=== PATIENT | female | born 1995 | race Caucasian/White ===

== ENCOUNTER 2016-04-22 16:02 | Emergency (ER) | payer OTHER ==
[2016-04-22] MEDS ORDERED: GI COCKTAIL 50ML BTL(HYOSCYAMINE/MAALOX/LIDOCAINE VISCOUS)(1:3:1) As Ordered ONE (16:50)
--- NOTE | 2016-04-22 16:57 | EDDOCDS ---
Physician Documentation [facility] Name: Diane Edmond Age: 20 yrs Sex: Female : 1995 Arrival Date: 04/22/2016 Time: 16:02 Bed Triage 1 Private MD: JOSI Jesus Disposition: 04/22/16 16:50 Discharged to Home/Self Care. Impression: Gastro-esophageal reflux disease. - Condition is Stable. - Discharge Instructions: Gastroesophageal Reflux Disease, Adult. - Prescriptions for Zantac 300 mg Oral Tablet - take 1 tablet by ORAL route At bedtime; 30 tablet. - Medication Reconciliation, Local Pharmacy Hours form. - Follow up: Emergency Department; When: As needed. Follow up: JOSI Jesus; When: Tomorrow; Reason: Wound/Symptom Recheck, Recheck today's complaints, Worsening of conditions, Continuance of care. - Problem is new. - Symptoms have improved. Historical: - Allergies: no known allergies; - Home Meds: 1. Oral daily - PMHx: none; - PSHx: none; - Social history: Smoking status: Patient states was never smoker of tobacco. No barriers to communication noted, The patient speaks fluent German, Speaks appropriately for age. - Family history: Not pertinent. - : The pt / caregiver states he / she is not on anticoagulants. Home medication list is obtained from the patient. - Exposure Risk Screening:: None identified. 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 6 in. (167.64 cm) (R); Pain 8/10; 16:05 Body Mass Index 38.74 (108.86 kg, 167.64 cm) gr2 MDM: 16:49 GI Cocktail - (Alum-Mag Hydroxide-Simeth 30 ml, Lidocaine 10 ml, Hyoscyamine 10 ml) PO cc10 once; Pre-mixed 50mL unit dose ordered. Administered Medications: 16:54 Drug: GI Cocktail - (Alum-Mag Hydroxide-Simeth Suspension 225 mg-200 mg-25 mg/5 mL 30 ck1 ml, Lidocaine Liquid 2 % 10 ml, Hyoscyamine Liquid 10 ml) Route: PO; Signatures: Chiara Garcia,RN RN ck1 Maddison LanderosRN RN ead Ace Joshi, MALVIN PAEmory cc10 MTDD
--- NOTE | 2016-04-22 16:57 | EDDOCDS ---
Nurse's Notes [facility] Name: Diane Edmond Age: 20 yrs Sex: Female : 1995 Arrival Date: 04/22/2016 Time: 16:02 Bed Triage 1 Private MD: JOSI Jesus Diagnosis: Gastro-esophageal reflux disease Presentation: 04/22 16:07 Presenting complaint: Patient states: Pt c/o pain underneath ribs, onset 1 hour ago. Pt ead also states she is 10 weeks, 6 days . Denies n/v. Risk factors: the patient reports no vaginal bleeding. Adult Sepsis Screening: The patient does not have new or worsening altered mentation. Patient's respiratory rate is less than 22. Systolic blood pressure is greater than 100. Patient has a qSOFA score of 0- Negative Sepsis Screen. Suicide/Homicide risk assessment- the patient denies having any suicidal and/or homicidal ideations and does not present with any other emotional, behavioral or mental health complaints. Status: The patient is a dependent. Transition of care: patient was not received from another setting of care. 16:07 Acuity: FRANTZ Level 3 ead 16:07 Method Of Arrival: Walkin/Carried/Asstd ead Triage Assessment: 16:08 General: Appears in no apparent distress, comfortable, Behavior is appropriate for age, ead cooperative. Pain: Location: diaphragm Pain currently is 4 out of 10 on a pain scale. At worst was 6 out of 10 on a pain scale. HIV screening NA for this visit Offered previously. GI: Reports upper abd pain, Denies nausea, vomiting. GI: Denies cramping. : Denies vaginal bleeding. Derm: Skin is pink, warm & dry. 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 Oral daily - PMHx: none; - PSHx: none; - Social history: Smoking status: Patient states was never smoker of tobacco. No barriers to communication noted, The patient speaks fluent Vincentian, Speaks appropriately for age. - Family history: Not pertinent. - : The pt / caregiver states he / she is not on anticoagulants. Home medication list is obtained from the patient. - Exposure Risk Screening:: None identified. Screenin:55 Screening information is obtained from the patient. Fall risk: No risks identified. ck1 Assistance ADL's: requires no assistance with activities of daily living. Abuse/DV Screen: The patient / caregiver reports he/she is: not in a situation that causes fear, pain or injury. Nutritional screening: No deficits noted. Advance Directives: Currently, there is no health care proxy. home support is adequate. Assessment: 16:55 General: Appears in no apparent distress, comfortable, Behavior is appropriate for age, ck1 cooperative. Pain: Location: epigastric area Pain currently is 2 out of 10 on a pain scale. GI: Abdomen is obese, Bowel sounds present X 4 quads. Abd is soft and non tender X 4 quads. Denies nausea, vomiting. : Denies cramping vaginal bleeding. Derm: Skin is pink, warm & dry. Vital Signs: 16:05 BP 126 / 71; Pulse 93; Resp 18 S; Temp 97.8(O); Pulse Ox 100% on R/A; Weight 108.86 kg gr2 (R); Height 5 ft. 6 in. (167.64 cm) (R); Pain 8/10; 16:05 Body Mass Index 38.74 (108.86 kg, 167.64 cm) gr2 Vitals: 16:05 Log In Time: April 22, 2016 at 16:05. gr2 ED Course: 16:04 Patient visited by Viral Erickson. gr2 16:04 Edin [facility] is Private Physician. gr2 16:04 Patient moved to Waiting gr2 16:06 Patient visited by Viral Erickson. gr2 16:06 Patient moved to Pre RCE gr2 16:08 Triage Initiated ead 16:37 Patient moved to Triage 1 ck1 16:39 Ace Joshi PA-C is PHCP. cc10 16:39 Laurel Franz MD is Attending Physician. cc10 16:47 Patient visited by Chiara Garcia RN. ck1 16:50 JOSI Jesus is Referral Physician. cc10 16:51 Patient visited by Ace Joshi PA-C. cc10 16:51 Patient visited by Ace Joshi PA-C. cc10 16:55 The patient / caregiver is instructed regarding the plan of care and ED course. ck1 16:55 No IV's were initiated during this patient's visit. No procedures done that require ck1 assistance. Administered Medications: 16:54 Drug: GI Cocktail - (Alum-Mag Hydroxide-Simeth Suspension 225 mg-200 mg-25 mg/5 mL 30 ck1 ml, Lidocaine Liquid 2 % 10 ml, Hyoscyamine Liquid 10 ml) Route: PO; Order Results: There are currently no results for this order. Outcome: 16:50 Discharge ordered by Provider. cc10 16:55 Discharge Assessment: Patient awake, alert and oriented x 3. No cognitive and/or ck1 functional deficits noted. Patient verbalized understanding of disposition instructions. patient administered narcotics - no. The following High Risk Discharge criteria are identified: None. Discharged to home ambulatory. Condition: stable. Discharge instructions given to patient, Instructed on discharge instructions, follow up and referral plans. medication usage, Demonstrated understanding of instructions, medications, Pt was receptive of discharge instructions/ teaching. Prescriptions given X 1. No special radiology studies were completed. Property :Personal belongings accompany Pt. 16:56 Patient left the ED. ck1 Signatures: Chiara Garcia,RN RN ck1 Viral Erickson gr2 Maddison Landeros,RN RN eaAce Huff PA-C PAEm[facility] cc10 MTDD
--- NOTE | 2016-04-24 17:57 | EDDOCDS ---
Nurse's Notes [facility] Name: Diane Edmond Age: 20 yrs Sex: Female : 1995 Arrival Date: 04/22/2016 Time: 16:02 Bed Triage 1 Private MD: JOSI Jesus Diagnosis: Gastro-esophageal reflux disease Presentation: 04/22 16:07 Presenting complaint: Patient states: Pt c/o pain underneath ribs, onset 1 hour ago. Pt ead also states she is 10 weeks, 6 days . Denies n/v. Risk factors: the patient reports no vaginal bleeding. Adult Sepsis Screening: The patient does not have new or worsening altered mentation. Patient's respiratory rate is less than 22. Systolic blood pressure is greater than 100. Patient has a qSOFA score of 0- Negative Sepsis Screen. Suicide/Homicide risk assessment- the patient denies having any suicidal and/or homicidal ideations and does not present with any other emotional, behavioral or mental health complaints. Status: The patient is a dependent. Transition of care: patient was not received from another setting of care. 16:07 Acuity: FRANTZ Level 3 ead 16:07 Method Of Arrival: Walkin/Carried/Asstd ead Triage Assessment: 16:08 General: Appears in no apparent distress, comfortable, Behavior is appropriate for age, ead cooperative. Pain: Location: diaphragm Pain currently is 4 out of 10 on a pain scale. At worst was 6 out of 10 on a pain scale. HIV screening NA for this visit Offered previously. GI: Reports upper abd pain, Denies nausea, vomiting. GI: Denies cramping. : Denies vaginal bleeding. Derm: Skin is pink, warm & dry. 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 Oral daily - PMHx: none; - PSHx: none; - Social history: Smoking status: Patient states was never smoker of tobacco. No barriers to communication noted, The patient speaks fluent Indian, Speaks appropriately for age. - Family history: Not pertinent. - : The pt / caregiver states he / she is not on anticoagulants. Home medication list is obtained from the patient. - Exposure Risk Screening:: None identified. Screenin:55 Screening information is obtained from the patient. Fall risk: No risks identified. ck1 Assistance ADL's: requires no assistance with activities of daily living. Abuse/DV Screen: The patient / caregiver reports he/she is: not in a situation that causes fear, pain or injury. Nutritional screening: No deficits noted. Advance Directives: Currently, there is no health care proxy. home support is adequate. Assessment: 16:55 General: Appears in no apparent distress, comfortable, Behavior is appropriate for age, ck1 cooperative. Pain: Location: epigastric area Pain currently is 2 out of 10 on a pain scale. GI: Abdomen is obese, Bowel sounds present X 4 quads. Abd is soft and non tender X 4 quads. Denies nausea, vomiting. : Denies cramping vaginal bleeding. Derm: Skin is pink, warm & dry. Vital Signs: 16:05 BP 126 / 71; Pulse 93; Resp 18 S; Temp 97.8(O); Pulse Ox 100% on R/A; Weight 108.86 kg gr2 (R); Height 5 ft. 6 in. (167.64 cm) (R); Pain 8/10; 16:05 Body Mass Index 38.74 (108.86 kg, 167.64 cm) gr2 Vitals: 16:05 Log In Time: April 22, 2016 at 16:05. gr2 ED Course: 16:04 Patient visited by Viral Erickson. gr2 16:[address] [facility] [place] [facility] is Private Physician. gr2 16:04 Patient moved to Waiting gr2 16:06 Patient visited by Viral Erickson. gr2 16:06 Patient moved to Pre RCE gr2 16:08 Triage Initiated ead 16:37 Patient moved to Triage 1 ck1 16:39 Aec Joshi PA-C is PHCP. cc10 16:39 Laurel Franz MD is Attending Physician. cc10 16:47 Patient visited by Chiara Garcia RN. ck1 16:50 JOSI Jesus is Referral Physician. cc10 16:51 Patient visited by Ace Joshi PA-C. cc10 16:51 Patient visited by Ace Joshi PA-C. cc10 16:55 The patient / caregiver is instructed regarding the plan of care and ED course. ck1 16:55 No IV's were initiated during this patient's visit. No procedures done that require ck1 assistance. 16:57 Patient visited by Ace Joshi PA-C. cc10 16:59 [facility] Payment Agreement was scanned into [employer] and attached to record. clif 04/23 09:42 T-Sheet-- Draft Copy was scanned into [employer] and attached to record. gb Administered Medications: 04/22 16:54 Drug: GI Cocktail - (Alum-Mag Hydroxide-Simeth Suspension 225 mg-200 mg-25 mg/5 mL 30 ck1 ml, Lidocaine Liquid 2 % 10 ml, Hyoscyamine Liquid 10 ml) Route: PO; Order Results: There are currently no results for this order. Outcome: 16:50 Discharge ordered by Provider. cc10 16:55 Discharge Assessment: Patient awake, alert and oriented x 3. No cognitive and/or ck1 functional deficits noted. Patient verbalized understanding of disposition instructions. patient administered narcotics - no. The following High Risk Discharge criteria are identified: None. Discharged to home ambulatory. Condition: stable. Discharge instructions given to patient, Instructed on discharge instructions, follow up and referral plans. medication usage, Demonstrated understanding of instructions, medications, Pt was receptive of discharge instructions/ teaching. Prescriptions given X 1. No special radiology studies were completed. Property :Personal belongings accompany Pt. 16:56 Patient left the ED. ck1 Signatures: Sally Argueta, Reg Reg gb Chiara GarciaRN RN ck1 Viral Erickson gr2 Maddison Landeros,RN RN Ace Barksdale PA-C PA-C cc10 Doreen Hernandez [facility] Chart Complete [facility]
--- NOTE | 2016-04-24 17:57 | EDDOCDS ---
Physician Documentation [facility] Name: Diane Edmond Age: 20 yrs Sex: Female : 1995 Arrival Date: 04/22/2016 Time: 16:02 Bed Triage 1 Private MD: JOSI Jesus Disposition: 04/22/16 16:50 Discharged to Home/Self Care. Impression: Gastro-esophageal reflux disease. - Condition is Stable. - Discharge Instructions: Gastroesophageal Reflux Disease, Adult. - Prescriptions for Zantac 300 mg Oral Tablet - take 1 tablet by ORAL route At bedtime; 30 tablet. - Medication Reconciliation, Local Pharmacy Hours form. - Follow up: Emergency Department; When: As needed. Follow up: JOSI Jesus; When: Tomorrow; Reason: Wound/Symptom Recheck, Recheck today's complaints, Worsening of conditions, Continuance of care. - Problem is new. - Symptoms have improved. Historical: - Allergies: no known allergies; - Home Meds: 1. Oral daily - PMHx: none; - PSHx: none; - Social history: Smoking status: Patient states was never smoker of tobacco. No barriers to communication noted, The patient speaks fluent Jamaican, Speaks appropriately for age. - Family history: Not pertinent. - : The pt / caregiver states he / she is not on anticoagulants. Home medication list is obtained from the patient. - Exposure Risk Screening:: None identified. 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 6 in. (167.64 cm) (R); Pain 8/10; 16:05 Body Mass Index 38.74 (108.86 kg, 167.64 cm) gr2 MDM: 16:49 GI Cocktail - (Alum-Mag Hydroxide-Simeth 30 ml, Lidocaine 10 ml, Hyoscyamine 10 ml) PO cc10 once; Pre-mixed 50mL unit dose ordered. 16:59 [facility] Payment Agreement was scanned into [employer] and attached to record. [facility] 16:59 Financial registration complete. codi 04/23 09:42 T-Sheet-- Draft Copy was scanned into [employer] and attached to record. gb Administered Medications: 04/22 16:54 Drug: GI Cocktail - (Alum-Mag Hydroxide-Simeth Suspension 225 mg-200 mg-25 mg/5 mL 30 ck1 ml, Lidocaine Liquid 2 % 10 ml, Hyoscyamine Liquid 10 ml) Route: PO; Signatures: Sally Argueta, Reg Reg gb Yaquelin-Chiara OrtizRN RN ck1 Maddison Landeros RN RN ead Ace Joshi, PA-C PA-C cc10 Doreen Hernandez The chart was reviewed and I authenticate all verbal orders and agree with the evaluation and treatment provided.Attachments: 16:59 [facility] Payment Agreement gjb 04/23 09:42 T-Sheet-- Draft Copy gb Chart Complete MTDD
--- NOTE | 2016-04-24 17:57 | EDDOCDS ---
Physician Documentation [facility] Name: Diane Edmond Age: 20 yrs Sex: Female : 1995 Arrival Date: 04/22/2016 Time: 16:02 Bed Triage 1 Private MD: JOSI Jesus Disposition: 04/22/16 16:50 Discharged to Home/Self Care. Impression: Gastro-esophageal reflux disease. - Condition is Stable. - Discharge Instructions: Gastroesophageal Reflux Disease, Adult. - Prescriptions for Zantac 300 mg Oral Tablet - take 1 tablet by ORAL route At bedtime; 30 tablet. - Medication Reconciliation, Local Pharmacy Hours form. - Follow up: Emergency Department; When: As needed. Follow up: JOSI Jesus; When: Tomorrow; Reason: Wound/Symptom Recheck, Recheck today's complaints, Worsening of conditions, Continuance of care. - Problem is new. - Symptoms have improved. Historical: - Allergies: no known allergies; - Home Meds: 1. Oral daily - PMHx: none; - PSHx: none; - Social history: Smoking status: Patient states was never smoker of tobacco. No barriers to communication noted, The patient speaks fluent Japanese, Speaks appropriately for age. - Family history: Not pertinent. - : The pt / caregiver states he / she is not on anticoagulants. Home medication list is obtained from the patient. - Exposure Risk Screening:: None identified. 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 6 in. (167.64 cm) (R); Pain 8/10; 16:05 Body Mass Index 38.74 (108.86 kg, 167.64 cm) gr2 MDM: 16:49 GI Cocktail - (Alum-Mag Hydroxide-Simeth 30 ml, Lidocaine 10 ml, Hyoscyamine 10 ml) PO cc10 once; Pre-mixed 50mL unit dose ordered. 16:59 [facility] Payment Agreement was scanned into [employer] and attached to record. [facility] 16:59 Financial registration complete. codi 04/23 09:42 T-Sheet-- Draft Copy was scanned into [employer] and attached to record. gb Administered Medications: 04/22 16:54 Drug: GI Cocktail - (Alum-Mag Hydroxide-Simeth Suspension 225 mg-200 mg-25 mg/5 mL 30 ck1 ml, Lidocaine Liquid 2 % 10 ml, Hyoscyamine Liquid 10 ml) Route: PO; Signatures: Sally Argueta, Reg Reg gb Yaquelin-Chiara OrtizRN RN ck1 Maddison Landeros RN RN ead Ace Joshi, PA-C PA-C cc10 Doreen Hernandez The chart was reviewed and I authenticate all verbal orders and agree with the evaluation and treatment provided.Attachments: 16:59 [facility] Payment Agreement gjb 04/23 09:42 T-Sheet-- Draft Copy gb Chart Complete MTDD
== END 2016-04-22 16:56 | disposition home or self-care (01) ==
LOC: M ED 16:02
DX: O99.611 Diseases of the digestive system complicating pregnancy, first trimester (principal); K21.9 Gastro-esophageal reflux disease without esophagitis; Z3A.10 10 weeks gestation of pregnancy

== ENCOUNTER 2016-08-27 00:54 | Outpatient (CLI) | payer OTHER ==
[~2016-08-27] VITALS: Ht 167.6 cm; Wt 125.0 kg
[2016-08-27 01:10] VITALS: BP 127/58
[2016-08-27] MEDS ORDERED: PREN27TA3 PO (01:12)
[2016-08-27] MEDS ORDERED: ACET50TA PO (01:12)
[2016-08-27 02:31] LABS: MEAN CORPUSCULAR HEMOGLOBIN 30.2 pg (27.0-33.0); MEAN CORPUSCULAR HGB CONC 34.3 g/dl (32.0-36.5); MEAN CORPUSCULAR VOLUME 88.2 fl (80.0-96.0); WHITE BLOOD COUNT 11.9 K/mm3 (4.0-10.0)
[2016-08-27 03:00] LABS: ALBUMIN 2.6 GM/DL (3.2-5.2); ALBUMIN/GLOBULIN RATIO 0.72 (1.00-1.93); ALKALINE PHOSPHATASE 130 U/L (45-117); ALT/SGPT 37 U/L (12-78); AMYLASE 53 U/L (25-115); ANION GAP 9 MEQ/L (8-16); AST/SGOT 27 U/L (15-37); BILIRUBIN,TOTAL 0.3 MG/DL (0.2-1.0); BLOOD UREA NITROGEN 10 MG/DL (7-18); CALCIUM LEVEL 8.9 MG/DL (8.5-10.1); CARBON DIOXIDE LEVEL 26 MEQ/L (21-32); CHLORIDE LEVEL 107 MEQ/L (98-107); CREATININE FOR GFR 0.75 MG/DL (0.55-1.02); GLOMERULAR FILTRATION RATE > 60.0 (>60); GLUCOSE, FASTING 83 MG/DL (70-105); POTASSIUM SERUM 3.8 MEQ/L (3.5-5.1); SODIUM LEVEL 142 MEQ/L (136-145); TOTAL PROTEIN 6.2 GM/DL (6.4-8.2)
== END 2016-08-27 03:45 | disposition home or self-care (01) ==
LOC: M LDO 00:54
PROVIDERS: ATTEND Obstetrics & Gynecology
DX: O99.89 Other specified diseases and conditions complicating pregnancy, childbirth and the puerperium (principal); R10.13 Epigastric pain; K21.9 Gastro-esophageal reflux disease without esophagitis; Z3A.28 28 weeks gestation of pregnancy

== ENCOUNTER 2016-09-15 21:02 | Outpatient (CLI) | payer OTHER ==
[~2016-09-15] VITALS: Ht 167.6 cm; Wt 120.0 kg
[~2016-09-15 21:02] MED LIST: ACET50TA PO; PREN27TA3 PO
[2016-09-15 21:05] VITALS: BP 122/65
[2016-09-15 21:16] VITALS: BP 122/65
[2016-09-15 22:30] LABS: MEAN CORPUSCULAR HEMOGLOBIN 30.1 pg (27.0-33.0); MEAN CORPUSCULAR HGB CONC 33.5 g/dl (32.0-36.5); MEAN CORPUSCULAR VOLUME 89.7 fl (80.0-96.0); WHITE BLOOD COUNT 13.2 K/mm3 (4.0-10.0)
[2016-09-15 22:50] LABS: ALBUMIN 2.8 GM/DL (3.2-5.2); ALKALINE PHOSPHATASE 139 U/L (45-117); ALT/SGPT 38 U/L (12-78); AMYLASE 53 U/L (25-115); ANION GAP 7 MEQ/L (8-16); AST/SGOT 41 U/L (15-37); BILIRUBIN,TOTAL 0.5 MG/DL (0.2-1.0); BLOOD UREA NITROGEN 10 MG/DL (7-18); CARBON DIOXIDE LEVEL 25 MEQ/L (21-32); CHLORIDE LEVEL 108 MEQ/L (98-107); CREATININE FOR GFR 0.58 MG/DL (0.55-1.02); GLOMERULAR FILTRATION RATE > 60.0 (>60); GLUCOSE, FASTING 95 MG/DL (70-105); POTASSIUM SERUM 4.3 MEQ/L (3.5-5.1); SODIUM LEVEL 140 MEQ/L (136-145); TOTAL PROTEIN 6.8 GM/DL (6.4-8.2)
[2016-09-15 23:26] VITALS: BP 109/64
== END 2016-09-15 23:38 | disposition home or self-care (01) ==
LOC: M LDO 21:02
PROVIDERS: ATTEND Obstetrics & Gynecology
DX: O99.89 Other specified diseases and conditions complicating pregnancy, childbirth and the puerperium (principal); R10.30 Lower abdominal pain, unspecified; K21.9 Gastro-esophageal reflux disease without esophagitis; Z3A.31 31 weeks gestation of pregnancy

== ENCOUNTER 2016-11-14 15:11 | Outpatient (CLI) | payer OTHER ==
--- NOTE | 2016-11-15 06:51 | HPE ---
DATE OF ADMISSION: 11/14/2016 20-year-old, 2, para 0, abortio 1, last menstrual period (LMP) 02/08/2016, expected date of confinement (EDC) 11/14/2016 at 40 weeks of gestation who was complaining of contractions every 15 minutes and she said that she was bleeding vaginally. Her past history, in 2016 at 8 weeks, had a spontaneous miscarriage. Her risk factors are that she has a body mass index (BMI) of 43, Rh negative and frequent urinary tract and recurrent infections with E-coli susceptible to Macrobid. Labs are A negative. HIV negative. Hepatitis negative. 1-hour glucose 112. 28-week glucose 101. RPR negative. Rubella immune. Varicella nonimmune. GBS negative. CF declined. Pap shows ASCUS, HPV negative. Urine had shown E-coli and test of cure was negative. Gonorrhea and chlamydia are negative. On examination today, no distress. Symphysis fundus height is 40, vertex, occiput anterior (OA), 100% effaced, -3 station, very posterior, 1-2 cm. No vaginal bleeding or loss was noted. No discharge was noted. Urine is 1.015, pH 5, 2+ leukocyte esterase, trace protein, and foul-smelling with 3+ bacteria. Blood pressure is 121/73, respirations are 18, pulse is 112, and temperature is 98.6. The rest the examination is unremarkable. She is normocephalic, atraumatic. Neck full range of motion. Pupils equal and reactive to light. Mucous membranes are very dry with cracked lips because she had nothing to drink all day today. Pulses are symmetric. No evidence of deep vein thrombosis (DVT), pulmonary embolism (PE) or superficial phlebitis. Chest is clear bilaterally at bases. No wheezes or rhonchi. No costovertebral angle (CVA) tenderness. Symphysis fundus height is appropriate. Four quadrant bowel sounds are noted. Uterus nontender. No rashes, lesions or pruritus. No arthralgia, myalgia. No complaints of cough, wheeze, shortness of breath, or dyspnea on exertion. No chest pain. Not bleeding. Neurologic complete. No incontinency or frequency. No nausea, vomiting, diarrhea, or constipation. No diabetic issues. THREAD CHECKER: She has ASCUS Pap, HPV negative. Past medical and surgical is unremarkable. Family history noncontributory. Does not smoke, drink or abuse drugs. She is . There is no domestic violence. We counseled her regarding kick chart, premature rupture of membranes, bleeding and contractions have to be 5-7 minutes apart and lasting 30 to 90 seconds. We also encouraged her to drink fluids as her urine is quite concentrated. We sent off a urine for routine and culture and sensitivity (C and S) and will treat accordingly. She has had increased urinary tract infections in the past. The patient was discharged with precautions regarding urinary tract infection and has an appointment on Tuesday in the clinic and discharged undelivered.
== END 2016-11-14 17:00 | disposition home or self-care (01) ==
LOC: M LDO 15:11
PROVIDERS: ATTEND Obstetrics & Gynecology
DX: O47.1 False labor at or after 37 completed weeks of gestation (principal); Z3A.40 40 weeks gestation of pregnancy; Z87.440 Personal history of urinary (tract) infections; O99.213 Obesity complicating pregnancy, third trimester; R87.610 Atypical squamous cells of undetermined significance on cytologic smear of cervix (ASC-US)

== ENCOUNTER 2016-11-20 03:22 | Outpatient (CLI) | payer OTHER ==
[~2016-11-20] VITALS: Ht 170.2 cm; Wt 124.0 kg
[2016-11-20 03:47] VITALS: BP 124/82
[2016-11-20 04:52] VITALS: BP 120/77
== END 2016-11-20 05:10 | disposition home or self-care (01) ==
LOC: M LDO 03:22
PROVIDERS: ATTEND Obstetrics & Gynecology
DX: O47.1 False labor at or after 37 completed weeks of gestation (principal); Z3A.40 40 weeks gestation of pregnancy

== ENCOUNTER 2016-11-20 14:34 | Inpatient (IN) | payer OTHER ==
[2016-11-20] VITALS (19 sets, daily range): BP systolic 96–141; BP diastolic 50–87
[~2016-11-20] VITALS: Ht 170.2 cm; Wt 136.0 kg
[2016-11-20] MEDS ORDERED: LACTATED RINGER'S 1000 ML IV STA (14:59)
[2016-11-20] MEDS ORDERED: LR 1,000 ML IV SCH ×2 (14:59→21:16)
[2016-11-20 16:06] LABS: MEAN CORPUSCULAR HEMOGLOBIN 29.9 pg (27.0-33.0); MEAN CORPUSCULAR HGB CONC 34.6 g/dl (32.0-36.5); MEAN CORPUSCULAR VOLUME 86.4 fl (80.0-96.0); RED CELL DISTRIBUTION WIDTH 14.4 % (11.5-14.5); WHITE BLOOD COUNT 9.7 K/mm3 (4.0-10.0)
[2016-11-20] MEDS ORDERED: FENTANYL 2MCG/ML ROPIVACAINE 0.2% IN 0.9% NACL 200ML IVBAG As Ordered ONE (19:02)
[2016-11-20] MEDS ORDERED: diphenhydrAMINE INJ 50MG/ML VIAL (J1200) IV PRN (19:45)
[2016-11-20] MEDS ORDERED: ePHEDrine SULFATE 25 MG/5 ML(5MG/ML) SYRINGE IV PRN (19:45)
[2016-11-20] MEDS ORDERED: ONDANSETRON 4MG/2ML VIAL (J2405) IV PRN (19:45)
[2016-11-20] MEDS ORDERED: FENTANYL/ROPIVACAINE/NACL BAG 200 ML EPIDURAL SCH (19:45)
[2016-11-20] MEDS ORDERED: EPIDURAL/PCA KEYS XX PRN (19:45)
[2016-11-20] MEDS ORDERED: LACTATED RINGER'S 1000 ML IV PRN (19:45)
[2016-11-20] MEDS ORDERED: REFRIGERATOR IV KEYS XX PRN (19:45)
[2016-11-20] MEDS ORDERED: EPIDURAL COMMENT XX SCH (19:45)
[2016-11-20] MEDS ORDERED: NALOXONE INJ 0.4 MG/1 ML VIAL (J2310) IV PRN (19:45)
[2016-11-20] MEDS ORDERED: OXYTOCIN 30 UNITS IN 0.9% NaCl 500ML IV BAG (J2590) As Ordered ONE (20:39)
[2016-11-20] MEDS ORDERED: OXYTOCIN DRIP 30 UNITS in APPROPRIATE DILUENT 1 EA IV SCH (21:30)
[2016-11-21] VITALS (15 sets, daily range): BP systolic 104–139; BP diastolic 53–77
[2016-11-21] MEDS ORDERED: DOCUSATE SODIUM 100 MG CAP PO PRN (04:00)
[2016-11-21] MEDS ORDERED: MEASLES,MUMPS,RUBELLA VACCINE INJ (MMR-II) (90707) SC SCH (04:00)
[2016-11-21] MEDS ORDERED: METHYLERGONOVINE MALEATE 0.2 MG TAB PO PRN (04:00)
[2016-11-21] MEDS ORDERED: ONDANSETRON 4MG/2ML VIAL (J2405) IV PRN (04:00)
[2016-11-21] MEDS ORDERED: PROMETHAZINE 25 MG TAB PO PRN (04:00)
[2016-11-21] MEDS ORDERED: RHOGAM 300 MCG (1500 IU) INJ (J2790) IM SCH (04:00)
[2016-11-21] MEDS ORDERED: DIBUCAINE 1% OINTMENT 30GM TOP PRN (04:00)
[2016-11-21] MEDS ORDERED: MOM 30ML SUSPENSION UDC PO PRN (04:00)
[2016-11-21] MEDS ORDERED: OXYTOCIN INJ 10 UNITS/ML VIAL (J2590) IM ONE (04:00)
[2016-11-21] MEDS: IBUPROFEN 800 MG TAB PO PRN (06:47)
[2016-11-21] MEDS: PRENATAL VITAMINS CHEWABLE TABLET PO SCH (08:32)
[2016-11-21] MEDS: ACETAMINOPHEN 500 MG TAB PO PRN ×2 (14:46→22:02)
[2016-11-22 06:24] VITALS: BP 117/68
[2016-11-22] MEDS ORDERED: [UNRECOGNIZED DRUG - OTHER] SC ONE (06:45)
[2016-11-22] MEDS: PRENATAL VITAMINS CHEWABLE TABLET PO SCH (08:40)
[2016-11-22] MEDS: IBUPROFEN 800 MG TAB PO PRN ×2 (08:41→20:58)
[2016-11-22 18:02] VITALS: BP 117/70
[2016-11-23 06:01] VITALS: BP 114/70
[2016-11-23] MEDS: PRENATAL VITAMINS CHEWABLE TABLET PO SCH (07:42)
[2016-11-23] MEDS: IBUPROFEN 800 MG TAB PO PRN (07:43)
[2016-11-23] MEDS ORDERED: ACET50TA PO (08:23)
[2016-11-23] MEDS ORDERED: IBUP-1114 PO (08:23)
[2016-11-23] MEDS ORDERED: COLA100C5 PO (08:23)
[2016-11-23] MEDS ORDERED: [UNRECOGNIZED DRUG - OTHER] SC ONE (09:00)
== END 2016-11-23 10:20 | disposition home or self-care (01) | DRG 775 ==
LOC: M LDO 14:34 → M LDI 14:57 → M OBS 11-21 06:20
PROVIDERS: ADMIT Student in an Organized Health Care Education/Training Program; ATTEND Student in an Organized Health Care Education/Training Program
PROC: 10E0XZZ Delivery of Products of Conception, External Approach (ICD-10-PCS; principal; 2016-11-21)
PROC: 0HQ9XZZ Repair Perineum Skin, External Approach (ICD-10-PCS; 2016-11-21)
PROC: 10907ZC Drainage of Amniotic Fluid, Therapeutic from Products of Conception, Via Natural or Artificial Opening (ICD-10-PCS; 2016-11-21)
DX: O48.0 Post-term pregnancy (principal); Z68.41 Body mass index [BMI] 40.0-44.9, adult; O99.214 Obesity complicating childbirth; Z3A.40 40 weeks gestation of pregnancy; E66.9 Obesity, unspecified; O70.0 First degree perineal laceration during delivery; Z37.0 Single live birth

== ENCOUNTER 2016-12-02 01:54 | Inpatient (IN) | payer OTHER ==
[~2016-12-02] VITALS: Ht 167.6 cm; Wt 123.8 kg
[~2016-12-02 01:54] MED LIST changes: +COLA100C5 PO; +IBUP-1114 PO
[2016-12-02] MEDS ORDERED: PRIL20TA2 PO (02:03)
[2016-12-02] MEDS ORDERED: ONDANSETRON 4MG/2ML VIAL (J2405) IV ONE (02:30)
[2016-12-02] MEDS ORDERED: NS 1,000 ML IV ONE (02:30)
[2016-12-02] MEDS ORDERED: METAL LOCK LOOP XX ONE (02:39)
--- NOTE | 2016-12-02 03:20 | REPUSA ---
CLINICAL HISTORY: Abdominal pain. TECHNIQUE: Realtime sonographic images were obtained in multiple projections. COMMENTS: The liver is of normal size, parenchyma demonstrates normal echogenicity. No discrete hepatic mass is seen. There is mild extrahepatic biliary ductal dilatation. CBD measures 7.5 mm. The gallbladder is signifi cantly distended containing sludge. Positive sonographic Martinez. The gallbladder wall is not thickene d measuring 3.6 mm and there is no pericholecystic fluid. There is no abdominal ascites. The right kidney measures 10x4.6x4.4 cm , free of hydronephrosis. IMPRESSION: Significantly distended gallbladder containing sludge. Suspected mild acute inflammatory changes of the gallbladder. Mildly dilated common bile duct. Thank you for your kind referral of this patient.
[2016-12-02 03:29] LABS: BASO % 0.5 % (0.0-1.0); EOS # 0.2 K/mm3 (0.0-0.50); EOS % 2.6 % (0.0-3.0); LARGE UNSTAINED CELL # 0.1 K/mm3 (0.0-0.4); LARGE UNSTAINED CELL % 0.5 % (0.0-4.0); LYMPH # 1.5 K/mm3 (1.5-6.5); MEAN CORPUSCULAR HGB CONC 33.1 g/dl (32.0-36.5); MEAN CORPUSCULAR VOLUME 87.8 fl (80.0-96.0); MONO # 0.3 K/mm3 (0.0-0.8); MONO % 3.3 % (0.0-5.0); NEUTROPHILS # 7.2 K/mm3 (1.8-7.7); PLATELET COUNT, AUTOMATED 312 k/mm3 (150-450); RED CELL DISTRIBUTION WIDTH 13.9 % (11.5-14.5); WHITE BLOOD COUNT 9.3 K/mm3 (4.0-10.0)
[2016-12-02] MEDS: MORPHINE 4 MG/ML 1ML SYRINGE IV PRN (03:31)
[2016-12-02 04:07] LABS: ALBUMIN 3.4 GM/DL (3.2-5.2); ALBUMIN/GLOBULIN RATIO 0.79 (1.00-1.93); ALKALINE PHOSPHATASE 189 U/L (45-117); ALT/SGPT 69 U/L (12-78); ANION GAP 10 MEQ/L (8-16); AST/SGOT 96 U/L (15-37); BILIRUBIN,DIRECT 0.7 MG/DL (0.0-0.2); BLOOD UREA NITROGEN 20 MG/DL (7-18); CARBON DIOXIDE LEVEL 26 MEQ/L (21-32); CHLORIDE LEVEL 105 MEQ/L (98-107); CREATININE FOR GFR 0.89 MG/DL (0.55-1.02); GLOMERULAR FILTRATION RATE > 60.0 (>60); GLUCOSE, FASTING 93 MG/DL (70-105); POTASSIUM SERUM 3.9 MEQ/L (3.5-5.1); SODIUM LEVEL 141 MEQ/L (136-145); TOTAL PROTEIN 7.7 GM/DL (6.4-8.2)
[2016-12-02] MEDS ORDERED: PIPERACILLIN/TAZOBACTAM SOD 3.375 GM in D5W MINI-BAG PLUS 50 ML IV ONE (04:15)
[2016-12-02] MEDS ORDERED: MORPHINE 4 MG/ML 1ML SYRINGE IV PRN ×2 (05:00→05:15)
[2016-12-02] MEDS: LR 1,000 ML IV SCH ×2 (05:02→16:10)
[2016-12-02] MEDS ORDERED: MEDE1CRE EXT (05:12)
[2016-12-02] MEDS ORDERED: TYLE325T5 PO (05:13)
[2016-12-02] MEDS ORDERED: ACETAMINOPHEN TAB 650MG DOSE (2X325MG) PO PRN (05:15)
[2016-12-02] MEDS ORDERED: ONDANSETRON 4MG/2ML VIAL (J2405) IV PRN (05:15)
[2016-12-02] MEDS ORDERED: NORCO, ANEXSIA 5/325MG TABLET (HYDROcodone/ACETAMINOPHEN) PO PRN (05:15)
[2016-12-02] MEDS: NORCO, ANEXSIA 5/325MG TABLET (HYDROcodone/ACETAMINOPHEN) PO PRN (05:40)
[2016-12-02 06:53] VITALS: BP 124/70
[2016-12-02] MEDS: SENOKOT S TAB PO SCH ×2 (08:21→21:01)
[2016-12-02] MEDS: metroNIDAZOLE 500 MG in APPROPRIATE DILUENT 1 EA IV SCH ×3 (08:21→23:31)
[2016-12-02] MEDS: PANTOPRAZOLE 40MG INJ (PROTONIX) (C9113) IV SCH (08:21)
[2016-12-02] MEDS ORDERED: ENOXAPARIN 40 MG/0.4 ML SYRINGE (J1650) SC SCH (09:00)
[2016-12-02 09:41] LABS: BASO % 0.3 % (0.0-1.0); EOS # 0.1 K/mm3 (0.0-0.50); EOS % 1.8 % (0.0-3.0); LARGE UNSTAINED CELL # 0.1 K/mm3 (0.0-0.4); LARGE UNSTAINED CELL % 0.7 % (0.0-4.0); LYMPH # 1.4 K/mm3 (1.5-6.5); LYMPH % 17.4 % (24.0-44.0); MEAN CORPUSCULAR HEMOGLOBIN 29.6 pg (27.0-33.0); MEAN CORPUSCULAR HGB CONC 33.9 g/dl (32.0-36.5); MEAN CORPUSCULAR VOLUME 87.4 fl (80.0-96.0); MONO # 0.3 K/mm3 (0.0-0.8); MONO % 3.6 % (0.0-5.0); NEUTROPHILS # 5.8 K/mm3 (1.8-7.7); NEUTROPHILS % 76.3 % (36.0-66.0); PLATELET COUNT, AUTOMATED 332 k/mm3 (150-450); RED CELL DISTRIBUTION WIDTH 13.9 % (11.5-14.5); WHITE BLOOD COUNT 7.5 K/mm3 (4.0-10.0)
[2016-12-02] MEDS: AMPICILLIN SOD/SULBACTAM SOD 3 GM in D5W MINI-BAG PLUS 100 ML IV SCH ×3 (09:53→21:01)
[2016-12-02 10:25] LABS: ALBUMIN/GLOBULIN RATIO 0.83 (1.00-1.93); ALKALINE PHOSPHATASE 168 U/L (45-117); ALT/SGPT 98 U/L (12-78); ANION GAP 7 MEQ/L (8-16); AST/SGOT 129 U/L (15-37); BILIRUBIN,TOTAL 1.4 MG/DL (0.2-1.0); BLOOD UREA NITROGEN 16 MG/DL (7-18); CALCIUM LEVEL 8.7 MG/DL (8.5-10.1); CARBON DIOXIDE LEVEL 27 MEQ/L (21-32); CHLORIDE LEVEL 109 MEQ/L (98-107); CREATININE FOR GFR 0.83 MG/DL (0.55-1.02); GLOMERULAR FILTRATION RATE > 60.0 (>60); GLUCOSE, FASTING 103 MG/DL (70-105); POTASSIUM SERUM 4.7 MEQ/L (3.5-5.1); SODIUM LEVEL 143 MEQ/L (136-145); TOTAL PROTEIN 6.6 GM/DL (6.4-8.2)
[2016-12-02 14:00] VITALS: BP 107/66
[2016-12-02 22:00] VITALS: BP 120/73
[2016-12-03] MEDS: NORCO, ANEXSIA 5/325MG TABLET (HYDROcodone/ACETAMINOPHEN) PO PRN (02:44)
[2016-12-03] MEDS: LR 1,000 ML IV SCH ×3 (03:27→13:02)
[2016-12-03] MEDS: AMPICILLIN SOD/SULBACTAM SOD 3 GM in D5W MINI-BAG PLUS 100 ML IV SCH ×2 (03:27→09:46)
[2016-12-03 06:00] VITALS: BP 121/59
[2016-12-03 08:05] LABS: BASO % 0.5 % (0.0-1.0); EOS # 0.2 K/mm3 (0.0-0.50); EOS % 4.8 % (0.0-3.0); LARGE UNSTAINED CELL # 0.1 K/mm3 (0.0-0.4); LARGE UNSTAINED CELL % 1.5 % (0.0-4.0); LYMPH # 1.3 K/mm3 (1.5-6.5); LYMPH % 27.6 % (24.0-44.0); MEAN CORPUSCULAR HEMOGLOBIN 29.8 pg (27.0-33.0); MEAN CORPUSCULAR HGB CONC 33.5 g/dl (32.0-36.5); MONO # 0.2 K/mm3 (0.0-0.8); MONO % 3.7 % (0.0-5.0); NEUTROPHILS # 2.9 K/mm3 (1.8-7.7); NEUTROPHILS % 61.8 % (36.0-66.0); PLATELET COUNT, AUTOMATED 280 k/mm3 (150-450); RED CELL DISTRIBUTION WIDTH 13.7 % (11.5-14.5); WHITE BLOOD COUNT 4.7 K/mm3 (4.0-10.0)
[2016-12-03] MEDS: PANTOPRAZOLE 40MG INJ (PROTONIX) (C9113) IV SCH (08:23)
[2016-12-03] MEDS: SENOKOT S TAB PO SCH (08:23)
[2016-12-03] MEDS: metroNIDAZOLE 500 MG in APPROPRIATE DILUENT 1 EA IV SCH (08:23)
[2016-12-03 08:29] LABS: ALBUMIN/GLOBULIN RATIO 0.83 (1.00-1.93); ALKALINE PHOSPHATASE 227 U/L (45-117); ALT/SGPT 151 U/L (12-78); ANION GAP 9 MEQ/L (8-16); AST/SGOT 161 U/L (15-37); BLOOD UREA NITROGEN 9 MG/DL (7-18); CALCIUM LEVEL 8.4 MG/DL (8.5-10.1); CARBON DIOXIDE LEVEL 26 MEQ/L (21-32); CHLORIDE LEVEL 108 MEQ/L (98-107); CREATININE FOR GFR 0.81 MG/DL (0.55-1.02); GLOMERULAR FILTRATION RATE > 60.0 (>60); GLUCOSE, FASTING 88 MG/DL (70-105); POTASSIUM SERUM 4.3 MEQ/L (3.5-5.1); SODIUM LEVEL 143 MEQ/L (136-145); TOTAL PROTEIN 6.6 GM/DL (6.4-8.2)
--- NOTE | 2016-12-03 08:42 | HPEPDOC ---
General Surgery H&P Date of Admission Dec 02, 2016 at 05:02 History and Physical CHIEF COMPLAINT: Abdominal pain HISTORY OF PRESENT ILLNESS: Healthy 21-year-old female who is a recent . She had vaginal delivery 11 days ago. She came to the emergency room with about a 1 day history of epigastric and right upper quadrant discomfort. Patient reports some associated nausea but did not vomit. No fevers reported. She denies any prior episodes of similar symptoms. She denies any episodes during her . She came to the ER was diagnosed to have possible cholecystitis. ALLERGIES: Please see below. HOME MEDICATIONS: Please see below. PAST MEDICAL HISTORY: PAST SURGICAL HISTORY: PERSONAL/SOCIAL HISTORY: Denies smoking, alcohol use, or recreational drug use. Patient currently breast feeding.. REVIEW OF SYSTEMS: GENERAL: Denies chills, fatigue, fever, weight gain and weight loss. HEENT: Denies blurred vision and double vision. Denies ear symptoms. Denies hoarseness. NECK: Denies any neck pain. CARDIOVASCULAR: Denies chest pain and palpitations. MUSCULOSKELETAL: Denies arthralgias, back pain and thrombophlebitis. SKIN: Denies rash. NEUROLOGIC: Denies headache, stroke and transient ischemic attack. PSYCHIATRIC: Denies anxiety and depression. ENDOCRINE: Denies thyroid disease. HEMATOLOGY/ONCOLOGY: Denies any bleeding or clotting disorder. HEART: Denies any chest pains, palpitations, paroxysmal dyspnea, orthopnea. PULMONARY: Denies chronic cough, dyspnea and wheezing. GASTROINTESTINAL: Denies rectal bleeding, family history of colon cancer, constipation, diarrhea, dysphagia, heartburn and jaundice. GENITOURINARY: Denies dysuria, frequency, hematuria and nocturia. ENDOCRINE: Denies polydipsia, polyphagia, polyuria, heat or cold intolerance. INFECTIOUS: Denies any recent upper respiratory tract infection, UTI, need for use of antibiotics. NUTRITION: Reports good appetite. DEVELOPMENT INTERN/OB: Patient had an uneventful . She had a vaginal delivery 11 days ago. She reports some vaginal tears which was repaired. Reports intermittent bleeding/passage of clots and old blood. She is currently breast-feeding PHYSICAL EXAMINATION: VITAL SIGNS: Please see below. GENERAL APPEARANCE: Patient seen at bedside, appears comfortable. Awake, alert, oriented. HEENT: Normocephalic, atraumatic. [place] palpebral conjunctivae. Anicteric sclerae. Lips moist. CHEST: No chest wall abnormalities. Normal respiratory motion/effort. NECK: Supple. No thyromegaly. No lymphadenopathies. LUNGS: Lung sounds are clear to auscultation bilaterally. No wheezing appreciated. HEART: No chest wall abnormalities. Heart rate and rhythm are regular with no murmurs. ABDOMEN: Abdomen is obese, soft, slightly rounded. No hepatosplenomegaly. No umbilical or groin herniations, mildly distended. Minimally tender over the right upper quadrant area. No Martinez sign. Mildly tender at the epigastric area SKIN: Warm, moist. EXTREMITIES: Extremities have no deformities. No edema identified. NEUROLOGICAL: . ANCILLARIES: . LABORATORY DATA: Please see below. MICROBIOLOGY: Please see below. IMAGING: . Abdominal ultrasound Significantly distended gallbladder containing sludge. Suspected mild acute inflammatory changes of the gallbladder. Mildly dilated common bile duct. IMPRESSION AND PLAN: Cholelithiasis with possibly mild acute cholecystitis. Questionable/possible choledocholithiasis Patient's pain subsided with some intermittent dosages of morphine in the emergency room. The main issue as I see it now is whether she passed a stone/ gravel to her biliary tree with some slight elevation of her LFTs likewise mildly distended common bile duct. We are going to follow her LFTs and trend this and see if she needs any further studies like MRCP. Depending on how this goes she may or may not need ERCP. Problem is that we do not have any gastroenterology coverage at the moment. We also spoke about doing cholecystectomy during this admission versus interval cholecystectomy. For now we will continue to give her IV antibiotics and IV fluid hydration. Other concerns includes her breast-feeding. So long as she is on narcotics and on Flagyl, she is advised not to breast-feed up to 48 hours. Vital Signs Vital Signs Date Time Temp Pulse Resp B/P (MAP) Pulse Ox O2 Delivery O2 Flow Rate FiO2 12/03/16 06:00 98.0 89 18 121/59 (79) 95 Room Air I&Os I&O- Last 24 Hours up to 6 AM 12/03/16 06:00 Intake Total 2280 ml Balance 2280 ml Laboratory Data Labs 24H Laboratory Tests 2 12/02/16 09:31: White Blood Count 7.5, Red Blood Count 3.74L, Hemoglobin 11.1L, Hematocrit 32.7L , Mean Corpuscular Volume 87.4, Mean Corpuscular Hemoglobin 29.6, Mean Corpuscular Hemoglobin Concent 33.9, Red Cell Distribution Width 13.9, Platelet Count 332, Neutrophils (%) (Auto) 76.3H, Lymphocytes (%) (Auto) 17.4L, Monocytes (%) (Auto) 3.6, Eosinophils (%) (Auto) 1.8, Basophils (%) (Auto) 0.3, Neutrophils # (Auto) 5.8, Lymphocytes # (Auto) 1.4L, Monocytes # (Auto) 0.3, Eosinophils # (Auto) 0.1, Basophils # (Auto) 0.0, Large Unclassified Cells % 0.7 , Large Unclassified Cells # 0.1, Anion Gap 7L, Glomerular Filtration Rate > 60.0, Blood Urea Nitrogen 16, Creatinine 0.83, Sodium Level 143, Potassium Level 4.7#, Chloride Level 109H, Carbon Dioxide Level 27, Calcium Level 8.7, Aspartate Amino Transf (AST/SGOT) 129H, Alanine Aminotransferase (ALT/SGPT) 98H , Alkaline Phosphatase 168H, Total Bilirubin 1.4H, Total Protein 6.6, Albumin 3.0L, Albumin/Globulin Ratio 0.83L 12/03/16 07:41: White Blood Count 4.7, Red Blood Count 3.64L, Hemoglobin 10.8L, Hematocrit 32.4L , Mean Corpuscular Volume 89.0, Mean Corpuscular Hemoglobin 29.8, Mean Corpuscular Hemoglobin Concent 33.5, Red Cell Distribution Width 13.7, Platelet Count 280, Neutrophils (%) (Auto) 61.8, Lymphocytes (%) (Auto) 27.6, Monocytes ( %) (Auto) 3.7, Eosinophils (%) (Auto) 4.8H, Basophils (%) (Auto) 0.5, Neutrophils # (Auto) 2.9, Lymphocytes # (Auto) 1.3L, Monocytes # (Auto) 0.2, Eosinophils # (Auto) 0.2, Basophils # (Auto) 0.0, Large Unclassified Cells % 1.5 , Large Unclassified Cells # 0.1 CBC/BMP Laboratory Tests 12/02/16 09:31 Red Blood Count 3.74 L, Mean Corpuscular Volume 87.4, Mean Corpuscular Hemoglobin 29.6, Mean Corpuscular Hemoglobin Concent 33.9, Red Cell Distribution Width 13.9, Neutrophils (%) (Auto) 76.3 H, Lymphocytes (%) (Auto) 17.4 L, Monocytes (%) (Auto) 3.6, Eosinophils (%) (Auto) 1.8, Basophils (%) ( Auto) 0.3, Neutrophils # (Auto) 5.8, Lymphocytes # (Auto) 1.4 L, Monocytes # ( Auto) 0.3, Eosinophils # (Auto) 0.1, Basophils # (Auto) 0.0, Calcium Level 8.7, Aspartate Amino Transf (AST/SGOT) 129 H, Alanine Aminotransferase (ALT/SGPT) 98 H, Alkaline Phosphatase 168 H, Total Bilirubin 1.4 H, Total Protein 6.6, Albumin 3.0 L 12/03/16 07:41 Red Blood Count 3.64 L, Mean Corpuscular Volume 89.0, Mean Corpuscular Hemoglobin 29.8, Mean Corpuscular Hemoglobin Concent 33.5, Red Cell Distribution Width 13.7, Neutrophils (%) (Auto) 61.8, Lymphocytes (%) (Auto) 27.6, Monocytes (%) (Auto) 3.7, Eosinophils (%) (Auto) 4.8 H, Basophils (%) ( Auto) 0.5, Neutrophils # (Auto) 2.9, Lymphocytes # (Auto) 1.3 L, Monocytes # ( Auto) 0.2, Eosinophils # (Auto) 0.2, Basophils # (Auto) 0.0 Home Medications Scheduled Lanolin (Medela Tender Care Lanoli) 1 Cre Cre, 1 CRE EXT ASDIRECTED, (Reported) PATIENT COULD USE AFTER EVERY FEEDING OR NEEDED Multivitamins/ ( 27-1 mg) 1 Tab Tab, 1 TAB PO DAILY, (Reported) Scheduled PRN Acetaminophen (Tylenol) 325 Mg Tab, 650 MG PO Q4H PRN for PAIN, (Reported) Docusate Sodium (Colace) 100 Mg Cap, 100 MG PO DAILY PRN for CONSTIPATION, ( Reported) Ibuprofen (Ibuprofen) 400 Mg Tab, 800 MG PO TID PRN for PAIN, (Reported) Omeprazole Magnesium (Prilosec Otc) 20 Mg Tab, 20 MG PO BID PRN for ACID REFLUX, (Reported) Allergies Coded Allergies: No Known Allergies (Unverified , 08/27/16) DANA COKER MD Dec 03, 2016 08:42
--- NOTE | 2016-12-03 10:43 | DS.PDOC ---
Discharge Summary General Date of Admission Dec 02, 2016 at 05:02 Date of Discharge 12/03/2016 Attending Physician: DANA COKER MD Discharge Summary PROCEDURES PERFORMED DURING STAY: None. ADMITTING DIAGNOSES: 1. Cholelithiasis with acute cholecystitis 2. Possible choledocholithiasis DISCHARGE DIAGNOSES: 1. Cholelithiasis with acute cholecystitis 2. Choledocholithiasis with elevation of the liver function test COMPLICATIONS/CHIEF COMPLAINT: Acute Cholecystitis. HISTORY OF PRESENT ILLNESS: See HPI HOSPITAL COURSE: Patient is admitted for acute onset of abdominal pain overnight that led her to the emergency room. She was diagnosed to have stones in the gallbladder, possibly acute cholecystitis. She received a couple of doses of morphine which by the time I saw the patient the abdominal discomfort seems to have mostly resolved. Her LFT show some mild elevation of the AST but her bilirubin was normal at 1.0. I repeated her labs to follow this up and there is some mild elevation of her bilirubin to 1.4. Review of her ultrasound shows mildly dilated common bile duct at 7.5 mm. Still she felt we'll get better by the time that I saw her. We started her on IV fluids, nothing by mouth and IV antibiotics. Overnight she reports some intermittent discomfort, with no nausea or vomiting or fevers noted. The labs this morning returned showing her bilirubin jumped up to 3.0. Her AST and ALT also are elevated at 161 and 151 respectively. This is more consistent with choledocholithiasis. Unfortunately we do not have a ornamental metal worker helper on-call who can do an ERCP. Thus she is being transferred to another institution with this capability. On discharge she is hemodynamically stable. She is afebrile. She has minimal discomfort over the epigastric and right upper quadrant area with mild tenderness on palpation. She did tolerate clear liquids last night. DISCHARGE MEDICATIONS: Please see below. ALLERGIES: Please see below. PHYSICAL EXAMINATION ON DISCHARGE: VITAL SIGNS: Please see below. GENERAL: Generally comfortable, no acute distress HEENT: Anicteric sclerae NECK: Supple, no jugular venous distention CARDIOVASCULAR EXAMINATION: Regular heart rate and rhythm RESPIRATORY EXAMINATION: Lungs clear to auscultation bilaterally, no wheezing. ABDOMINAL EXAMINATION: Obese, soft, nondistended. Minimally tender over her right upper quadrant area with no definite Martinez's sign. EXTREMITIES: No edema SKIN: No jaundice, no rashes NEUROLOGICAL EXAMINATION: Awake, alert, oriented PSYCHIATRIC EXAMINATION: Mood and affect are normal LABORATORY DATA: Please see below. IMAGING: Ultrasound of gallbladder Significantly distended gallbladder containing sludge. Suspected mild acute inflammatory changes of the gallbladder. Mildly dilated common bile duct. PROGNOSIS: Good. Symptoms should resolve after ERCP and cholecystectomy DIET: Nothing by mouth DISCHARGE PLAN: Patient will be transferred to [address] for which they will consult gastroenterology for ERCP, general surgery for possible cholecystectomy DISCHARGE CONDITION: Stable. TIME SPENT ON DISCHARGE: Greater than minutes. Vital Signs/I&Os Vital Signs Date Time Temp Pulse Resp B/P (MAP) Pulse Ox O2 Delivery O2 Flow Rate FiO2 12/03/16 06:00 98.0 89 18 121/59 (79) 95 Room Air I&O- Last 24 Hours up to 6 AM 12/03/16 06:00 Intake Total 2280 ml Balance 2280 ml Laboratory Data Labs 24H Laboratory Tests 2 12/03/16 07:41: White Blood Count 4.7, Red Blood Count 3.64L, Hemoglobin 10.8L, Hematocrit 32.4L , Mean Corpuscular Volume 89.0, Mean Corpuscular Hemoglobin 29.8, Mean Corpuscular Hemoglobin Concent 33.5, Red Cell Distribution Width 13.7, Platelet Count 280, Neutrophils (%) (Auto) 61.8, Lymphocytes (%) (Auto) 27.6, Monocytes ( %) (Auto) 3.7, Eosinophils (%) (Auto) 4.8H, Basophils (%) (Auto) 0.5, Neutrophils # (Auto) 2.9, Lymphocytes # (Auto) 1.3L, Monocytes # (Auto) 0.2, Eosinophils # (Auto) 0.2, Basophils # (Auto) 0.0, Large Unclassified Cells % 1.5 , Large Unclassified Cells # 0.1, Anion Gap 9, Glomerular Filtration Rate > 60.0 , Blood Urea Nitrogen 9, Creatinine 0.81, Sodium Level 143, Potassium Level 4.3 , Chloride Level 108H, Carbon Dioxide Level 26, Calcium Level 8.4L, Aspartate Amino Transf (AST/SGOT) 161H, Alanine Aminotransferase (ALT/SGPT) 151H, Alkaline Phosphatase 227H, Total Bilirubin 3.0#H, Total Protein 6.6, Albumin 3.0L, Albumin/Globulin Ratio 0.83L CBC/BMP Laboratory Tests 12/03/16 07:41 Red Blood Count 3.64 L, Mean Corpuscular Volume 89.0, Mean Corpuscular Hemoglobin 29.8, Mean Corpuscular Hemoglobin Concent 33.5, Red Cell Distribution Width 13.7, Neutrophils (%) (Auto) 61.8, Lymphocytes (%) (Auto) 27.6, Monocytes (%) (Auto) 3.7, Eosinophils (%) (Auto) 4.8 H, Basophils (%) ( Auto) 0.5, Neutrophils # (Auto) 2.9, Lymphocytes # (Auto) 1.3 L, Monocytes # ( Auto) 0.2, Eosinophils # (Auto) 0.2, Basophils # (Auto) 0.0, Calcium Level 8.4 L , Aspartate Amino Transf (AST/SGOT) 161 H, Alanine Aminotransferase (ALT/SGPT) 151 H, Alkaline Phosphatase 227 H, Total Bilirubin 3.0 #H, Total Protein 6.6, Albumin 3.0 L Discharge Medications Scheduled Lanolin (Medela Tender Care Lanoli) 1 Cre Cre, 1 CRE EXT ASDIRECTED, (Reported) PATIENT COULD USE AFTER EVERY FEEDING OR NEEDED Multivitamins/ ( 27-1 mg) 1 Tab Tab, 1 TAB PO DAILY, (Reported) Scheduled PRN Acetaminophen (Tylenol) 325 Mg Tab, 650 MG PO Q4H PRN for PAIN, (Reported) Docusate Sodium (Colace) 100 Mg Cap, 100 MG PO DAILY PRN for CONSTIPATION, ( Reported) Ibuprofen (Ibuprofen) 400 Mg Tab, 800 MG PO TID PRN for PAIN, (Reported) Omeprazole Magnesium (Prilosec Otc) 20 Mg Tab, 20 MG PO BID PRN for ACID REFLUX, (Reported) Allergies Coded Allergies: No Known Allergies (Unverified , 08/27/16) DANA COKER MD Dec 03, 2016 10:43
[2016-12-03 11:25] LABS: BILIRUBIN,DIRECT 2.5 MG/DL (0.0-0.2)
== END 2016-12-03 14:54 | disposition short-term general hospital (02) | DRG 776 ==
LOC: M ED 01:54 → M ED INP 05:02 → M MSPAV 06:27
PROVIDERS: ADMIT Surgery; ATTEND Surgery
DX: O99.63 Diseases of the digestive system complicating the puerperium (principal); K80.62 Calculus of gallbladder and bile duct with acute cholecystitis without obstruction; O26.63 Liver and biliary tract disorders in the puerperium

== ENCOUNTER 2016-12-22 17:58 | Emergency (ER) | payer OTHER ==
[~2016-12-22] VITALS: Ht 170.2 cm; Wt 123.6 kg
[~2016-12-22 17:58] MED LIST changes: +MEDE1CRE EXT; +PRIL20TA2 PO; +TYLE325T5 PO
[2016-12-22] MEDS ORDERED: OXYC-517 (18:32)
[2016-12-22 20:57] LABS: BASO % 0.7 % (0.0-1.0); EOS # 0.3 K/mm3 (0.0-0.50); EOS % 3.8 % (0.0-3.0); LARGE UNSTAINED CELL # 0.2 K/mm3 (0.0-0.4); LARGE UNSTAINED CELL % 2.1 % (0.0-4.0); LYMPH # 2.9 K/mm3 (1.5-6.5); LYMPH % 40.9 % (24.0-44.0); MEAN CORPUSCULAR HEMOGLOBIN 29.7 pg (27.0-33.0); MEAN CORPUSCULAR HGB CONC 34.2 g/dl (32.0-36.5); MEAN CORPUSCULAR VOLUME 86.7 fl (80.0-96.0); MONO # 0.3 K/mm3 (0.0-0.8); MONO % 4.9 % (0.0-5.0); NEUTROPHILS # 3.4 K/mm3 (1.8-7.7); NEUTROPHILS % 47.6 % (36.0-66.0); PLATELET COUNT, AUTOMATED 449 k/mm3 (150-450); RED CELL DISTRIBUTION WIDTH 13.1 % (11.5-14.5); WHITE BLOOD COUNT 7.1 K/mm3 (4.0-10.0)
[2016-12-22 21:08] LABS: ALBUMIN 4.1 GM/DL (3.2-5.2); ALBUMIN/GLOBULIN RATIO 0.95 (1.00-1.93); ALKALINE PHOSPHATASE 134 U/L (45-117); ALT/SGPT 34 U/L (12-78); ANION GAP 9 MEQ/L (8-16); AST/SGOT 21 U/L (15-37); BILIRUBIN,TOTAL 0.5 MG/DL (0.2-1.0); BLOOD UREA NITROGEN 18 MG/DL (7-18); CALCIUM LEVEL 8.8 MG/DL (8.5-10.1); CARBON DIOXIDE LEVEL 26 MEQ/L (21-32); CHLORIDE LEVEL 108 MEQ/L (98-107); GLOMERULAR FILTRATION RATE > 60.0 (>60); GLUCOSE, FASTING 85 MG/DL (70-105); POTASSIUM SERUM 4.1 MEQ/L (3.5-5.1); SODIUM LEVEL 143 MEQ/L (136-145); TOTAL PROTEIN 8.4 GM/DL (6.4-8.2)
--- NOTE | 2016-12-22 21:10 | REPUSA ---
HISTORY: Recent cholecystectomy with pain over her abdominal incision. TECHNIQUE: Limited ultrasound over the abdominal incision. FINDINGS: The examination demonstrates no pathologic mass or abnormal fluid collection. No significa nt hematoma, seroma, or abscess seen. No abdominal wall hernia seen. IMPRESSION: Negative limited ultrasound over the right upper quadrant abdominal wall incision as disc ussed above.
[2016-12-22] MEDS ORDERED: BACT800T5 PO (22:39)
[2016-12-22] MEDS ORDERED: BACTRIM 160MG/800MG DS TAB PO ONE (22:45)
[2016-12-22 22:47] VITALS: BP 145/97
== END 2016-12-22 22:49 | disposition home or self-care (01) ==
LOC: M ED 17:58
DX: R10.12 Left upper quadrant pain (principal); Z98.890 Other specified postprocedural states

== ENCOUNTER 2016-12-30 12:06 | Emergency (ER) | payer OTHER ==
[~2016-12-30] VITALS: Ht 167.6 cm; Wt 123.6 kg
[~2016-12-30 12:06] MED LIST changes: +BACT800T5 PO; +OXYC-517
--- NOTE | 2016-12-30 13:48 | REP ---
RIGHT ANKLE, FOUR VIEWS: HISTORY: Trauma. There is no acute fracture or dislocation. The joint space is normal in appearance. IMPRESSION: There is no acute fracture or dislocation. Signed by Samy Maier MD 12/30/2016 01:56 P
[2016-12-30] MEDS ORDERED: IBUP-1022 PO (13:51)
[2016-12-30 13:58] VITALS: BP 125/80
== END 2016-12-30 14:04 | disposition home or self-care (01) ==
LOC: M ED 12:06
DX: S93.401A Sprain of unspecified ligament of right ankle, initial encounter (principal); X50.9XXA Other and unspecified overexertion or strenuous movements or postures, initial encounter; Y92.019 Unspecified place in single-family (private) house as the place of occurrence of the external cause; Y93.01 Activity, walking, marching and hiking; Y99.8 Other external cause status

== ENCOUNTER 2018-12-27 09:52 | Emergency (ER) | payer OTHER ==
[~2018-12-27] VITALS: Ht 167.6 cm; Wt 147.5 kg
[~2018-12-27 09:52] MED LIST changes: -ACET50TA PO; +IBUP-1022 PO; +MAPA500T2 PO
[2018-12-27] MEDS ORDERED: PREN1CHW6 PO (10:03)
[2018-12-27] MEDS ORDERED: ONDANSETRON 4MG/2ML VIAL (J2405) IV ONE (10:30)
[2018-12-27] MEDS ORDERED: NS 1,000 ML IV ONE (10:30)
[2018-12-27 10:50] LABS: BASO % 0.2 % (0.0-1.0); EOS # 0.1 10^3/uL (0.0-0.5); EOS % 0.7 % (0.0-3.0); HEMOGLOBIN 11.8 g/dl (12.0-15.5); LYMPH % 11.8 % (24.0-44.0); MEAN CORPUSCULAR HEMOGLOBIN 28.4 pg (27.0-33.0); MEAN CORPUSCULAR HGB CONC 32.8 g/dl (32.0-36.5); MEAN CORPUSCULAR VOLUME 86.5 fl (80.0-96.0); MONO # 0.4 10^3/uL (0.0-0.8); MONO % 4.2 % (0.0-5.0); NEUTROPHILS # 7.1 10^3/uL (1.5-8.5); NEUTROPHILS % 82.6 % (36.0-66.0); PLATELET COUNT, AUTOMATED 220 10^3/uL (150-450); RED BLOOD COUNT 4.16 10^6/uL (4.00-5.40); WHITE BLOOD COUNT 8.6 10^3/uL (4.0-10.0)
[2018-12-27 11:19] LABS: ALBUMIN 3.2 GM/DL (3.2-5.2); ALT/SGPT 27 U/L (12-78); BILIRUBIN,DIRECT < 0.1 MG/DL (0.0-0.2); BILIRUBIN,TOTAL 0.4 MG/DL (0.2-1.0); BLOOD UREA NITROGEN 10 MG/DL (7-18); CALCIUM LEVEL 9.4 MG/DL (8.5-10.1); CARBON DIOXIDE LEVEL 23 MEQ/L (21-32); CHLORIDE LEVEL 107 MEQ/L (98-107); CREATININE FOR GFR 0.68 MG/DL (0.55-1.30); GLOMERULAR FILTRATION RATE > 60.0 (>60); GLUCOSE, FASTING 82 MG/DL (70-100); LIPASE 180 U/L (73-393); POTASSIUM SERUM 3.8 MEQ/L (3.5-5.1); SODIUM LEVEL 138 MEQ/L (136-145); TOTAL PROTEIN 7.8 GM/DL (6.4-8.2)
[2018-12-27] MEDS ORDERED: ONDA4TAB6 PO (11:45)
[2018-12-27 11:58] VITALS: BP 116/64
== END 2018-12-27 12:00 | disposition home or self-care (01) ==
LOC: M ED 09:52
DX: O99.612 Diseases of the digestive system complicating pregnancy, second trimester (principal); K52.9 Noninfective gastroenteritis and colitis, unspecified; K21.9 Gastro-esophageal reflux disease without esophagitis; Z3A.14 14 weeks gestation of pregnancy; Z79.899 Other long term (current) drug therapy
CPT/HCPCS: 36415; 80048; 80076; 81001; 83690; 85025; 87086; 96374; 99284; J2405

== ENCOUNTER 2019-06-02 13:56 | Outpatient (CLI) | payer OTHER ==
[~2019-06-02] VITALS: Ht 165.1 cm; Wt 151.6 kg
[~2019-06-02 13:56] MED LIST changes: +ONDA4TAB6 PO; +PREN1CHW6 PO
[2019-06-02 14:35] VITALS: BP 125/68
[2019-06-02] MEDS ORDERED: ACET160S3 PO (14:48)
[2019-06-02 15:29] VITALS: BP 108/63
[2019-06-02 15:40] LABS: ALT/SGPT 20 U/L (12-78); BILIRUBIN,TOTAL 0.2 MG/DL (0.2-1.0); CREATININE FOR GFR 0.63 MG/DL (0.55-1.30); GLOMERULAR FILTRATION RATE > 60.0 (>60); LDH LACTATE DEHYDROGENASE 159 U/L (84-246); URIC ACID 4.4 MG/DL (2.6-6.0)
[2019-06-02 15:57] LABS: HEMATOCRIT 31.2 % (36.0-47.0); HEMOGLOBIN 10.2 g/dl (12.0-15.5); MEAN CORPUSCULAR HGB CONC 32.7 g/dl (32.0-36.5); MEAN CORPUSCULAR VOLUME 88.6 fl (80.0-96.0); PLATELET COUNT, AUTOMATED 219 10^3/uL (150-450); RED BLOOD COUNT 3.52 10^6/uL (4.00-5.40); WHITE BLOOD COUNT 11.3 10^3/uL (4.0-10.0)
--- NOTE | 2019-06-03 20:05 | HPE ---
DATE OF ADMISSION: 06/02/2019 23-year-old 3, para 1, abortus 1, LMP 09/22/2018, EDC 06/24/2019, at 36 and 6 weeks of gestation saw a provider today when she was at her child's appointment and they told her her blood pressure was up at 152/78. She denies any headache, right upper quadrant pain, visual disturbances or swelling or decrease in urine output. She came to triage for evaluation. Her risk factors is she has gestational hypertension. She has morbid obesity and BMI of 53.62 and she is Rh negative. Her past history: In 2017, had contractions at 40 and 6, spontaneous delivery male, 8 pounds 8 ounces. In 2016, spontaneous 8 weeks. Labs show she is A negative, HIV negative, hepatitis negative, RPR negative, rubella immune. Varicella nonimmune. Pap normal. Urine negative. 1-hour glucose early one was 119, 1-hour GTT at 28 weeks was 109. Gonorrhea and chlamydia are negative. On examination today, no acute distress. Symphysis fundus height is 37, vertex presenting. No contractions. No vaginal loss or bleeding. Category one strip was noted. Ultrasound performed showed a vertex presentation, four limb movement. heart rate 144 beats per minute. Four limb activity. SANDRA in three quadrants was 12.44, smallest pocket was 3.85. Placenta did not appear calcified. Her blood pressure initially was 125/68, respirations were 20, pulse was 94, temperature was 98.3. One hour later, her blood pressure is 108/63, respirations 18, pulse 96, temperature 98.3. She had a total protein at 24 hours of 270. We reviewed her lab work from today and her protein creatinine ratio was 0.18. Her uric acid 4.6, AST 19, ALT 20, LDH 159 and GFR was greater than 60, hemoglobin 10.2, hematocrit 31.2 and platelets were 219. In summary, we have a lady who has defined gestational hypertension by her last three visits of blood pressures 136/68, 130/75, 141/73. Her pre-28-week blood pressures were within normal limits. We discussed the etiology and the management of gestational hypertension. We have booked her for induction of labor at 38 weeks, 06/11/2019. She is to keep her followup appointments, which is monitoring and reviewed the signs and symptoms of preeclampsia including right upper quadrant pain, visual disturbances, spots before your eyes, decreased urine output and significant swelling. The patient expressed understanding of the plan of care, was in agreement with the plan of care. She was discharged to followup for induction of labor. Discharged undelivered.
== END 2019-06-02 16:15 | disposition home or self-care (01) ==
LOC: M LDO 13:56
PROVIDERS: ATTEND Obstetrics & Gynecology
DX: O13.3 Gestational [pregnancy-induced] hypertension without significant proteinuria, third trimester (principal); O99.213 Obesity complicating pregnancy, third trimester; E66.01 Morbid (severe) obesity due to excess calories
CPT/HCPCS: 36415; 59025; 76815; 82247; 82565; 82570; 83615; 84156; 84450; 84460; 84550; 85027; G0378; G0463

== ENCOUNTER → 2019-06-05 | Outpatient (CLI) | payer OTHER ==
[~2019-06-05] MED LIST changes: +ACET160S3 PO
--- NOTE | 2019-06-05 15:02 | REP ---
Limited obstetric sonography: History: None reassuring NST. Estimated body weight. Biophysical profile. Findings: A single living intrauterine gestation is seen in a cephalic lie. Placenta is posterior grade 1 without evidence of previa or abruption. Amniotic fluid is subjectively normal. SANDRA is normal at 15.1 cm. heart rate is recorded at 139 beats per minute. Biophysical profile score is eight out of a possible eight. SD ratio in the umbilical cord artery by Doppler is normal at 2.33. Closed cervical length is 3.8 cm viewed transabdominally. Electronically Signed by Farzad Arthur MD 06/05/2019 02:53 P
== END ==
LOC: M RAD 14:16
PROVIDERS: ATTEND Obstetrics & Gynecology
DX: O77.9 Labor and delivery complicated by fetal stress, unspecified (principal); Z3A.37 37 weeks gestation of pregnancy

== ENCOUNTER 2019-06-11 22:02 | Inpatient (IN) | payer OTHER ==
[~2019-06-11] VITALS: Ht 167.6 cm; Wt 154.0 kg
[2019-06-11] MEDS ORDERED: LACTATED RINGER'S 1000 ML IV STA (22:30)
[2019-06-11] MEDS ORDERED: miSOPROStol 25 MCG 1/4 TAB (S0191) PV ONE (22:45)
[2019-06-11 23:32] LABS: HEMATOCRIT 33.1 % (36.0-47.0); HEMOGLOBIN 10.8 g/dl (12.0-15.5); MEAN CORPUSCULAR HEMOGLOBIN 28.7 pg (27.0-33.0); MEAN CORPUSCULAR HGB CONC 32.6 g/dl (32.0-36.5); PLATELET COUNT, AUTOMATED 220 10^3/uL (150-450); RED BLOOD COUNT 3.76 10^6/uL (4.00-5.40); WHITE BLOOD COUNT 9.5 10^3/uL (4.0-10.0)
[2019-06-11 23:58] VITALS: BP 116/55
[2019-06-12] VITALS (11 sets, daily range): BP systolic 111–139; BP diastolic 57–73
[2019-06-12] MEDS ORDERED: PROMETHAZINE INJ 25 MG/ML VIAL (J2550) IV ONE
--- NOTE | 2019-06-12 00:08 | HPEPDOC ---
Obstetrical History & Physical General Date of Admission Jun 11, 2019 at 22:02 History of Present Illness Diane is a 23yo with SIUP at 38w1d by 12wk u/s presenting for scheduled IOL for GHTN. She feels well other than normal hip pain. No ANTUNEZ/vision changes/RUQ pain. No regular/painful ctx. No LOF. No vaginal bleeding. Does feel good movement. Chief Complaint: Induction of labor Information Provided By: Patient Care Care: Good Care Dating Final EDC: Jun 24, 2019 Final EDC by: 1st trimester (US) Antepartum Course Diagnos(e)s GHTN, morbid obesity (starting BMI 53.6) taking ASA 81mg qd and having normal glucola, Rh negative (received rhogam 04/11/2019), anemia (H/H 10.6/31.3), varicella non-immune Height (inches): 66 Pre- weight (lbs.): 332 Admission Weight (lbs.): 338 Change in Weight (lbs.): 6 Past Medical History Past Obstetrical History : Past Obstetrical History: Multigravida (term without complications 11/2016, 8lb8oz) D[employer] TENDER History: No pertinent history Past Medical History Medical History morbid obesity, depression (behavioral health) stable on no meds Surgical History: Gallbladder Family History Significant Family History: No pertinent family hx Social History Marital Status: Family situation: Spouse/partner home Psychosocial History: Depression * Smoker: non-smoker Alcohol: Denies Drugs: denies Imunizations Tdap status: current Influenza Status: current Allergies Coded Allergies: No Known Allergies (Unverified , 12/30/16) Medications Scheduled Vit37/Iron/Folic Acid ([place] Chewable Tablet) 1 Each Tab.chew, 1 TAB PO DAILY Physical Examination Physical Examination GENERAL: Alert and oriented times three. ABDOMEN: Gravid and non-tender to touch. Morbidly obese. FETUS: Is vertex (VTX) by TAUS done at bedside EXTREMITIES: trace edema BLE Laboratory Data 24H LABS Laboratory Tests 2 06/11/19 22:07: Serology Scanned Report Hepatitis B Testing 06/11/19 23:23: Nucleated Red Blood Cells % (auto) 0.0 CBC/BMP Laboratory Tests 06/11/19 23:23 Pertinent Laboratoy Data Blood Type: A- RBC Antibody Screen: Negative HIV: Negative Hepatitis B: Negative Hepatitis C: Unknown Rapid Plasma Reagin: Nonreactive Rubella: Immune Varicella: Nonreactive Chlamydia/Gonorrhea: Negative Group B Streptococcus: Positive Glucose Tolerance Test: 109 Anatomy Ultrasound Ultrasound Date: Feb 02, 2019 Placenta Location: Posterior Normal Anatomy: Yes Placenta Previa: No Steroid Therapy Steroid Therapy: No Vaginal Examination Dilation: Fingertip Effacement: other (thick) Station: -3 Cervical Consistency: Medium Cervical Position: Middle Presentation: Cephalic presentation Assessment Heart Rate (FHR): 135 Variability: Moderate Accelerations: Positive Decelerations: None Tocometer Contractions: No Assessment/Plan Assessment Diane is a 23yo with SIUP at 38w1d by 12wk u/s presenting for scheduled IOL for GHTN. Cephalic by TAUS. Hx of prior term , proven to 8lb8oz. SCE ft/thick/high. No ctx. Cat I FHRT. GBS positive by urine culture. PMhx/ course significant for: GHTN, morbid obesity (starting BMI 53.6) taking ASA 81mg qd and having normal glucola, Rh negative (received rhogam 04/11/2019), anemia (H/H 10.6/31.3), depression (behavioral health) stable on no meds, varicella non-immune Plan Admit and orient. 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 Diet: clear liquids Group B Streptococcus (GBS) positive: PCN per protocol Labs and intravenous (IV) per unit protocol. Counseled on cytotec, nguyen bulb, Pitocin and induction of labor (IOL). 25mcg cytotec placed PV. Plan to re-dose with 50mcg PO in 4hr and continue q4hr until good regular ctx pattern obtained. Will reassess for nguyen bulb in the morning. Lactated Ringers (LR): Bolus 500 mL, then at 125 mL/hr. Anticipate normal spontaneous delivery () Candidate for epidural in active labor, stadol/phenergan IV in latent labor if desired Safe to proceed MD Mamta Avina Katrina D MD Jun 12, 2019 00:08
[2019-06-12] MEDS ORDERED: PENICILLIN G POTASSIUM IV 5 MU in D5W MINI-BAG PLUS 100 ML IV STA ×2 (00:11→14:00)
[2019-06-12 01:01] LABS: ALT/SGPT 23 U/L (12-78); BILIRUBIN,TOTAL 0.3 MG/DL (0.2-1.0); CREATININE FOR GFR 0.56 MG/DL (0.55-1.30); GLOMERULAR FILTRATION RATE > 60.0 (>60); LDH LACTATE DEHYDROGENASE 179 U/L (84-246); URIC ACID 4.9 MG/DL (2.6-6.0)
[2019-06-12] MEDS: miSOPROStol 50 MCG 1/2 TAB (S0191) PO SCH ×4 (03:55→13:27)
[2019-06-12] MEDS ORDERED: PENICILLIN G POTASSIUM IV 2.5 MU in IV 1 EA IV SCH (04:15)
[2019-06-12] MEDS: diphenhydrAMINE INJ 50MG/ML VIAL (J1200) IV PRN ×5 (05:37→22:50)
[2019-06-12] MEDS ORDERED: miSOPROStol 25 MCG 1/4 TAB (S0191) PV ONE (08:45)
[2019-06-12] MEDS ORDERED: **PENDING PCN ENTRY XX SCH (09:00)
[2019-06-12] MEDS ORDERED: PENICILLIN G POTASSIUM 5 MU VIAL As Ordered ONE (14:07)
[2019-06-12] MEDS ORDERED: OXYTOCIN DRIP 30 UNITS in IV 1 EA IV SCH (15:45)
[2019-06-12] MEDS ORDERED: CALCIUM CARBONATE 500 MG CHEW U/D PO PRN (17:15)
[2019-06-12] MEDS ORDERED: ACETAMINOPHEN 500 MG TAB PO PRN (17:15)
[2019-06-12] MEDS ORDERED: MOM 30ML SUSPENSION UDC PO PRN (17:15)
[2019-06-12] MEDS ORDERED: SIMETHICONE 80 MG CHEW TAB PO PRN (17:15)
[2019-06-12] MEDS: PENICILLIN G POTASSIUM IV 2.5 MU in IV 1 EA IV SCH ×2 (18:45→22:50)
--- NOTE | 2019-06-12 22:22 | IPNPDOC ---
Text Note Date of Service The patient was seen on 06/12/19. NOTE Contacted by nurse due to patient having welts and hives all over body. Patient itchy and uncomfortable since being in bed. Receiving IV Benadryl OTC without relief. went to get new sheets from home. Patient tearful and uncomfortable. FHT: Cat 1, 130s, reactive but decreased variability (sleep cycle), no decels, ctx q 3min. Entire body (trunk and limbs) with raised pink lesions 3-4cm. D/w patient about d/c pitocin so we can stop monitoring and she can get in bath until reaction ceases. Then change bedding. Once reaction stops and benadryl redosed then we can restart. Patient agreed. VS,Fishbone, I+O VS, Fishbone, I+O Laboratory Tests 06/11/19 23:23 Vital Signs Date Time Temp Pulse Resp B/P (MAP) Pulse Ox O2 Delivery O2 Flow Rate FiO2 06/12/19 21:34 92 131/73 (92) 06/12/19 20:30 98.3 06/12/19 18:06 18 Vee Osorio MD Jun 12, 2019 22:22
[2019-06-13] VITALS (47 sets, daily range): BP systolic 103–145; BP diastolic 59–100
[2019-06-13] MEDS ORDERED: PROMETHAZINE INJ 25 MG/ML VIAL (J2550) As Ordered ONE (00:35)
[2019-06-13] MEDS: BUTORPHANOL 2 MG/ML INJ (J0595) IV PRN ×3 (00:38→15:52)
[2019-06-13] MEDS: PENICILLIN G POTASSIUM IV 2.5 MU in IV 1 EA IV SCH ×5 (03:24→20:40)
[2019-06-13] MEDS: diphenhydrAMINE INJ 50MG/ML VIAL (J1200) IV PRN ×4 (05:50→20:46)
--- NOTE | 2019-06-13 07:07 | IPNPDOC ---
Text Note Date of Service The patient was seen on 06/13/19. NOTE Patient is uncomfortable with contractions. Had stadol/phenergan x1. Welts/hives improved with plan. Pitocin restarted around 00:30. VS WNL GEN: NAD HEART: RRR LUNGS: BCTA ABD: Gravid SVE 2/50/-2 LE: nontender FHT: cat 1, 140s, reactive, no decels, ctx q2mi A/P: Fetus reassuring. Continue pitocin. Consider nguyen bulb in cervix after shift change and stadol. VS,Fishbone, I+O VS, Fishbone, I+O Vital Signs Date Time Temp Pulse Resp B/P (MAP) Pulse Ox O2 Delivery O2 Flow Rate FiO2 06/13/19 00:38 18 06/12/19 21:34 92 131/73 (92) 06/12/19 20:30 98.3 I&O- Last 24 Hours up to 6 AM 06/13/19 05:59 Intake Total 1800 ml Balance 1800 ml Vee Osorio MD Jun 13, 2019 07:07
[2019-06-13] MEDS: LR 1,000 ML IV SCH ×3 (07:49→23:30)
--- NOTE | 2019-06-13 16:29 | IPNPDOC ---
Text Note Date of Service The patient was seen on 06/13/19. NOTE 23yo with SIUP at 38w+3d by 12wk u/s admitted 11 JUN 2019 for scheduled IOL for GHTN. her induction started with cytotec x 4. Was started on oxytocin around 0100 this AM. She recently received stadol for pain management. pit: 10mU vitals: normal nad fht: 120/mod chelita/pos acel/no decel. toco: ctx q 3-5mins ce: 2/50/-3, posterior, soft a/p patient not in labor. nguyen bulb placed with 80cc of fluid in cervical side. continue to titrate pit to effect. recheck once nguyen bulb comes out. Alissa, VS,Fishbone, I+O VS, Fishbone, I+O Vital Signs Date Time Temp Pulse Resp B/P (MAP) Pulse Ox O2 Delivery O2 Flow Rate FiO2 06/13/19 15:52 18 06/13/19 14:46 99.2 06/13/19 14:38 80 132/80 (97) I&O- Last 24 Hours up to 6 AM 06/13/19 06:00 Intake Total 1800 ml Balance 1800 ml EVELYN BISHOP DO Jun 13, 2019 16:29
--- NOTE | 2019-06-13 21:33 | IPNPDOC ---
Text Note Date of Service The patient was seen on 06/13/19. NOTE patient without concerns. feeling mild ctx. pit: 12mU/min vitals: normal nad fht: 135/mod chelita/pos accel/no decel toco: ctx q 2mins ce: /-2 a/p patient in latent labor. attempt to AROM unsuccessful. continue to titrate pit to effect. recheck in 4-6hrs. sooner as needed. Le, DO VS,Fishbone, I+O VS, Fishbone, I+O Vital Signs Date Time Temp Pulse Resp B/P (MAP) Pulse Ox O2 Delivery O2 Flow Rate FiO2 06/13/19 18:08 99.8 85 139/88 (105) 06/13/19 17:16 18 I&O- Last 24 Hours up to 6 AM 06/13/19 06:00 Intake Total 1800 ml Balance 1800 ml EVELYN BISHOP DO Jun 13, 2019 21:33
[2019-06-13] MEDS ORDERED: FENTANYL 2MCG/ML ROPIVACAINE 0.2% IN 0.9% NACL 100ML IVBAG As Ordered ONE (23:12)
[2019-06-13] MEDS ORDERED: NALOXONE INJ 0.4 MG/1 ML VIAL (J2310) IV PRN (23:17)
[2019-06-13] MEDS ORDERED: ONDANSETRON 4MG/2ML VIAL (J2405) IV PRN (23:17)
[2019-06-13] MEDS ORDERED: EPIDURAL COMMENT XX SCH (23:17)
[2019-06-13] MEDS ORDERED: diphenhydrAMINE INJ 50MG/ML VIAL (J1200) IV PRN (23:17)
[2019-06-13] MEDS ORDERED: EPIDURAL/PCA KEYS XX PRN (23:17)
[2019-06-13] MEDS ORDERED: LACTATED RINGER'S 1000 ML IV PRN (23:17)
[2019-06-13] MEDS ORDERED: ePHEDrine SULFATE 25 MG/5 ML(5MG/ML) SYRINGE IV PRN (23:17)
[2019-06-13] MEDS ORDERED: FENTANYL/ROPIVACAINE/NACL BAG 100 ML EPIDURAL SCH (23:17)
[2019-06-13] MEDS ORDERED: REFRIGERATOR IV KEYS XX PRN (23:17)
[2019-06-14] VITALS (17 sets, daily range): BP systolic 112–148; BP diastolic 59–74
[2019-06-14] MEDS: PENICILLIN G POTASSIUM IV 2.5 MU in IV 1 EA IV SCH (01:00)
[2019-06-14] MEDS ORDERED: OXYTOCIN DRIP 30 UNITS in IV 1 EA IV SCH (02:06)
[2019-06-14] MEDS ORDERED: RHOGAM 300 MCG (1500 IU) INJ (J2790) IM SCH (02:15)
[2019-06-14] MEDS ORDERED: DIBUCAINE 1% OINTMENT 30GM TOP PRN (02:15)
[2019-06-14] MEDS ORDERED: MEASLES,MUMPS,RUBELLA VACCINE INJ (MMR-II) (90707) SC SCH (02:15)
--- NOTE | 2019-06-14 02:20 | DNPDOC ---
[facility] Delivery Note Delivery Note DATE OF DELIVERY: 06/14/2019 PREDELIVERY DIAGNOSIS: 1)38+3/7 weeks' gestation 2)Gestational hypertension 3)Morbid obesity POST DELIVERY DIAGNOSIS: 1) 2)Gestational hypertension 3)Morbid obesity PROCEDURE: Spontaneous vaginal delivery SURFACE PLATE INSPECTOR: Dr. Cindy Maxwell DO ANESTHESIA: Epidural ESTIMATED BLOOD LOSS: 250 mL. FINDINGS: 6 pound 14 ounce 3130gm, male , Score 8/9, nuchal cord times x 1. DELIVERY SUMMARY: with good maternal effort, baby delivered OA, restituted ROT. Nuchal cord reduced. Anterior shoulder delivered followed by posterior shoulder, body followed with ease. Baby placed on maternal abdomen. Cord allows to stop pulsating. Cord clamped x2 and cut by FOB. Pitocin bolus started. Cord blood collected for routine lab. Placenta delivered. fundus massaged firm. Inspection reveals no laceration needing repair. Baby and mother bonding when I left the room. DO DARIO Maxwell LUAT N. DO Jun 14, 2019 02:20
[2019-06-14] MEDS: PRENATAL VITAMINS CHEWABLE TABLET PO SCH (08:31)
[2019-06-14] MEDS: DOCUSATE SODIUM 100 MG CAP PO SCH ×2 (08:31→20:23)
[2019-06-14] MEDS ORDERED: IBUP-1022 PO (10:33)
[2019-06-14] MEDS ORDERED: DOCU100C16 PO (10:33)
[2019-06-14] MEDS ORDERED: DIBU10OI TOP (10:33)
[2019-06-14] MEDS ORDERED: diphenhydrAMINE 50 MG CAP PO PRN (12:30)
[2019-06-14] MEDS ORDERED: diphenhydrAMINE 25 MG CAP PO PRN (12:30)
[2019-06-14] MEDS: IBUPROFEN 600 MG TAB PO PRN ×2 (14:29→20:24)
[2019-06-14] MEDS: ACETAMINOPHEN TAB 650MG DOSE (2X325MG) PO PRN (17:57)
[2019-06-15] MEDS: ACETAMINOPHEN TAB 650MG DOSE (2X325MG) PO PRN ×2 (01:15→13:06)
[2019-06-15 06:00] VITALS: BP 124/81
--- NOTE | 2019-06-15 07:11 | IPNPDOC ---
Progress Note Date of Service: Jun 15, 2019 Day#: 1 Progress Note SUBJECT: Patient is a 23-year-old 3 now Para 2 status post uncomplicated spontaneous vaginal delivery for IOL for GHTN without vaginal laceration, doing well day # 1. She has been minimally ambulating, voiding spontaneously without issue and tolerating regular diet. Breast feeding without issue. Reports lochia is like a normal period. Reports some cramping with . Denies any pain. Crying stating that her grandmother 5years ago and this would be her 5th grandchild. When I discuss coping skills she sounds uninterested and seems to desire to want to discuss her sadness only. OBJECTIVE: VITAL SIGNS: Within normal limits, afebrile. Alert and oriented times three. Breast without erythema or tenderness. Breath sounds clear to auscultation. Heart rate: Regular rate and rhythm, no murmurs, rubs or gallops. Abdomen: Fundus firm at U-2. Soft, NTTP. Perineum: intact, Minimal lochia. LE: no edema, nontender ASSESSMENT: Patient is a 23-year-old 3 now Para 2 status post uncomplicated spontaneous vaginal delivery for IOL for GHTN without vaginal laceration, doing well day # 1. Vitals within normal limits, afebrile, hemodynamically stable with no evidence of infection. PLAN: 1. Continue care. 2. Tylenol and Motrin for pain. 3. Encourage breast feeding and ambulation. 4. Social work consult VS, I&O, 24H, Fishbone Vital Signs/I&O Vital Signs Date Time Temp Pulse Resp B/P (MAP) Pulse Ox O2 Delivery O2 Flow Rate FiO2 06/14/19 06:27 99.9 103 17 114/74 (87 97 I&O- Last 24 Hours up to 6 AM 06/14/19 06:00 Intake Total 2075 ml Output Total 1325 ml Balance 750 ml Vee Osorio MD Jun 14, 2019 10:32
[2019-06-15] MEDS: DOCUSATE SODIUM 100 MG CAP PO SCH (08:33)
[2019-06-15] MEDS: IBUPROFEN 600 MG TAB PO PRN (08:33)
[2019-06-15] MEDS: PRENATAL VITAMINS CHEWABLE TABLET PO SCH (08:33)
[2019-06-15] MEDS ORDERED: ADACEL/BOOSTRIX VACCINE (DIPHTH/PERTUSS/ACELL/TETANUS)0.5ML SYR (90715) IM ONE (09:00)
[2019-06-15] MEDS ORDERED: buPROPion **XL** TABLET 150MG (WELLBUTRIN XL) PO SCH (15:00)
[2019-06-15] MEDS ORDERED: BUPR150T3 PO (17:53)
--- NOTE | 2019-06-15 23:44 | IPN ---
DATE: 06/15/2019 This is a 23-year-old 3, para 2 who is admitted for induction of labor for gestational hypertension. Her risk factors is morbid obesity with a body mass index (BMI) of 53.6, Rh negative, anemia, depression, was on medication Wellbutrin 300 mg daily, discontinued her Wellbutrin after 12 weeks. She had a spontaneous vaginal delivery with epidural of a live male , 6 pounds 14 ounces, 3130 grams. scores of 8 and 9 at one and five minutes respectively. While on she had swings of mood, depression, anxiety, crying and she had severe initial inability to cope. She was seen by Social Service. We had put in an order to psychiatry for evaluation; however, psychiatry has not responded as yet. We had discussed the reinstitution of Wellbutrin. She had been taking 300 mg at bedtime once daily; however, she stopped in September 2018. Therefore, we discussed with her reinstituting her Wellbutrin at 150 mg daily and moving up in the next 4 or 5 days to 300 mg. We reviewed the risks, benefits including breast-feeding, although does go through breast-feeding, it is not considered dangerous to the baby or to the mother, with the benefits outweighing the risks. Mother expressed understanding. We started her on 150 mg XL and will continue that at home until she sees her mental health provider and counselor on Tuesday.
--- NOTE | 2019-06-16 15:47 | DSES ---
DATE OF ADMISSION: 06/11/2019 DATE OF DISCHARGE: 06/15/2019 This lady is a 23-year-old 3, now para 2, who was admitted at 38 and 1 weeks of gestation with gestational hypertension, induction of labor. Had a spontaneous vaginal delivery, male, 6 pounds 14 ounces, 3130 grams, scores of 8 and 9 at one and five minutes, respectively. Her risk factors are gestational hypertension, morbid obesity, body mass index (BMI) of 53.6, and extreme anxiety. On discharge, we discussed phlebitis, cystitis, mastitis, metritis, cellulitis, diet, exercise, pain management, and perineal and breast care. We also discussed the use of her Wellbutrin. She had initially been on 300 daily. She has not had it since September 2018. We elected to start her on 150 mg and bump it up to 300 after 4 days. We reviewed the indications and contraindications with pharmacy, and it is okay with breast-feeding. She has a behavioral health appointment on Tuesday, which she is keeping, and a 6-week with [facility]. Medications were dispensed at [facility]. In summary, we have a term gestation, delivered a live male . Discharged improved.
== END 2019-06-15 19:00 | disposition home or self-care (01) | DRG 807 ==
LOC: M LDI 22:02 → M OBS 06-14 04:00
PROVIDERS: ADMIT Obstetrics & Gynecology; ATTEND Obstetrics & Gynecology
PROC: 3E0P7GC Introduction of Other Therapeutic Substance into Female Reproductive, Via Natural or Artificial Opening (ICD-10-PCS; 2019-06-11)
PROC: 10E0XZZ Delivery of Products of Conception, External Approach (ICD-10-PCS; principal; 2019-06-14)
DX: O13.2 Gestational [pregnancy-induced] hypertension without significant proteinuria, second trimester (principal); Z37.0 Single live birth; Z3A.38 38 weeks gestation of pregnancy; O99.214 Obesity complicating childbirth; E66.01 Morbid (severe) obesity due to excess calories; O99.824 Streptococcus B carrier state complicating childbirth; L50.6 Contact urticaria; O99.72 Diseases of the skin and subcutaneous tissue complicating childbirth; O99.345 Other mental disorders complicating the puerperium; F32.9 Major depressive disorder, single episode, unspecified; F41.9 Anxiety disorder, unspecified